=== PATIENT | female | born 1940 | race Caucasian/White ===

== ENCOUNTER 2016-05-10 20:35 | Emergency (ER) | payer MEDICARE, BC | END 2016-05-11 00:34 | disposition home or self-care (01) | LOC: ER 20:35 | DX: K62.5 Hemorrhage of anus and rectum (principal); R10.9 Unspecified abdominal pain; R19.7 Diarrhea, unspecified; E78.5 Hyperlipidemia, unspecified; Z90.711 Acquired absence of uterus with remaining cervical stump; Z90.49 Acquired absence of other specified parts of digestive tract; Z79.899 Other long term (current) drug therapy; Z91.041 Radiographic dye allergy status | CPT/HCPCS: 36415; 51701 ==

== ENCOUNTER → 2016-05-14 | Day surgery (SDC) | payer MEDICARE, BC | END | disposition home or self-care (01) | LOC: SDCH 10:34 | DX: K52.9 Noninfective gastroenteritis and colitis, unspecified (principal); K57.30 Diverticulosis of large intestine without perforation or abscess without bleeding; K64.8 Other hemorrhoids; Z79.899 Other long term (current) drug therapy; Z87.891 Personal history of nicotine dependence; Z85.118 Personal history of other malignant neoplasm of bronchus and lung; Z90.710 Acquired absence of both cervix and uterus; Z90.49 Acquired absence of other specified parts of digestive tract; Z91.041 Radiographic dye allergy status | CPT/HCPCS: J2704 ==